=== PATIENT | female | born 1940 | race African-American/Black ===

== ENCOUNTER 2017-10-05 09:29 | Outpatient (CLI) | payer MEDICARE, MEDICAID | END 2017-10-05 09:30 | disposition home or self-care (01) | LOC: BICMAMMO 09:29 | PROVIDERS: ATTEND Internal Medicine | DX: Z12.31 Encounter for screening mammogram for malignant neoplasm of breast (principal); R92.8 Other abnormal and inconclusive findings on diagnostic imaging of breast; Z80.3 Family history of malignant neoplasm of breast | CPT/HCPCS: 77063; 77067 ==

== ENCOUNTER 2017-10-29 10:42 | Outpatient (CLI) | payer MEDICARE, MEDICAID ==
--- NOTE | 2017-10-29 11:43 | RAD ---
LEFT KNEE 4 VIEWS: HISTORY: Knee pain. FINDINGS: Mild degenerative changes at the medial joint space with mild spurring from the mediofemoral condyle. Minimal spurring from the patella. No fracture or acute abnormality. IMPRESSION: Mild degenerative change. POS: JONAH
--- NOTE | 2017-10-29 12:01 | RAD ---
RIGHT KNEE 4 VIEWS: HISTORY: Right knee pain. FINDINGS: Mild degenerative changes are noted. Minimal spurring from the tibial spine and posterior patella. No fracture or acute abnormality. IMPRESSION: Very mild degenerative change. POS: JONAH
== END 2017-10-29 10:43 | disposition home or self-care (01) ==
LOC: RAD-FRANK 10:42
PROVIDERS: ATTEND Internal Medicine
DX: M25.561 Pain in right knee (principal); M25.562 Pain in left knee; M17.0 Bilateral primary osteoarthritis of knee